=== PATIENT | male | born 1960 | race Two or more races ===

== ENCOUNTER 2021-07-03 00:21 | Inpatient (IN) | payer MEDICAID ==
[~2021-07-03] VITALS: Ht 175.3 cm; Wt 98.0 kg
[~2021-07-03 00:21] MED LIST: HYDR-4833 PO; NAPR500T31 PO
[2021-07-03 01:53] LABS: Basophils # (auto) 0.1 10 ^3/uL (0-0.2); Basophils % (auto) 0.8 % (0.0-2.0); Eosinophils # (auto) 0.2 10 ^3/uL (0-0.8); Eosinophils % (auto) 2.1 % (0.0-7.0); Hemoglobin 15.3 g/dL (13.5-17.5); Lymphocytes # (auto) 1.3 10 ^3/uL (0.4-5.4); Lymphocytes % (auto) 14.4 % (10.0-50.0); Mean Corpuscular Hemoglobin 31.2 pg (28.0-32.0); Mean Corpuscular Volume 91.8 fL (80.0-100.0); Monocytes # (auto) 0.7 10 ^3/uL (0-1.3); Monocytes % (auto) 7.8 % (0.0-12.0); Neutrophils # (auto) 6.5 10 ^3/uL (1.6-8.6); Neutrophils % (auto) 74.9 % (37.0-80.0); Nucleated Red Blood Cells % 0.1 %; Red Cell Distribution Width 14.1 % (11.8-14.3); White Blood Cell 8.7 10^3/uL (4.4-10.8)
[2021-07-03 02:16] LABS: INR 1.05 (0.9-1.15); Partial Thromboplastin Time 28.3 sec (23.6-33.0)
[2021-07-03 02:20] LABS: Albumin 3.3 g/dL (3.4-5.0); BUN/Creatinine Ratio 20.4; Calcium 8.4 mg/dL (8.5-10.1); Potassium 4.2 mmol/L (3.5-5.1)
[2021-07-03 02:23] LABS: Bilirubin, Total 0.5 mg/dL (0.2-1.0); Total Protein 7.2 g/dL (6.4-8.2)
[2021-07-03] MEDS ORDERED: ASPirin 325 MG TAB PO ONE (03:00)
[2021-07-03] MEDS ORDERED: IOHEXOL 350 MG/ML 100ML IJ ONE (03:26)
[2021-07-03] MEDS ORDERED: HEPARIN SODIUM (PORCINE) 5000 UNITS/ML 1ML VIAL IV ONE (05:00)
[2021-07-03] MEDS ORDERED: FUROSEMIDE 20 MG/2 ML VIAL IV ONE (05:30)
[2021-07-03] MEDS ORDERED: ONDANSETRON HCL 4 MG/2 ML VIAL IV PRN (05:30)
[2021-07-03] MEDS ORDERED: HYDROcodone-ACET 5/325MG TAB PO PRN (05:30)
[2021-07-03] MEDS ORDERED: DOCUSATE SOD 100 MG CAP PO PRN (05:30)
[2021-07-03] MEDS ORDERED: ACETAMINOPHEN 325 MG TAB PO PRN (05:30)
[2021-07-03] MEDS ORDERED: AZITHROMYCIN 500MG/ 250ML 250 ML IV ONE (05:30)
[2021-07-03] MEDS ORDERED: CARVEDILOL 3.125 MG TAB PO ONE (05:45)
[2021-07-03] MEDS ORDERED: MORPHINE SULFATE INJ 2 MG/ml SYRG IV PRN (06:00)
[2021-07-03] MEDS: DexAMETHasone SOD PHOS 4 MG/1ML SDV INJ IV SCH ×3 (06:00→22:17)
[2021-07-03] MEDS: SODIUM CHLOR 0.9% PF (SALINE LOCK) 10ML VIAL/SYR IV SCH ×3 (06:00→22:16)
[2021-07-03] MEDS: HEPARIN SODIUM (PORCINE) 5000 UNITS/ML 1ML VIAL SC SCH ×3 (06:00→22:24)
[2021-07-03] MEDS ORDERED: NITROGLYCERIN 0.4 MG SL TAB SL PRN (06:00)
[2021-07-03] MEDS ORDERED: ALBUTEROL SULF HFA 90MCG INH 200DOSE IN SCH (06:00)
[2021-07-03] MEDS ORDERED: AMIODARONE HCL 200 MG TAB PO ONE (06:15)
[2021-07-03 06:22] LABS: Urine Bacteria NONE SEEN /hpf (None Seen); Urine Blood Negative /uL (Negative); Urine Mucus FEW (None Seen); Urine WBC 4 /hpf (0 - 3)
[2021-07-03 06:59] LABS: Basophils # (auto) 0.1 10 ^3/uL (0-0.2); Basophils % (auto) 0.7 % (0.0-2.0); Eosinophils # (auto) 0.1 10 ^3/uL (0-0.8); Eosinophils % (auto) 1.6 % (0.0-7.0); Hematocrit 43.7 % (41.0-53.0); Hemoglobin 15.1 g/dL (13.5-17.5); Lymphocytes # (auto) 1.7 10 ^3/uL (0.4-5.4); Lymphocytes % (auto) 19.3 % (10.0-50.0); Mean Corpuscular Hemoglobin 31.6 pg (28.0-32.0); Mean Corpuscular Hgb Conc. 34.5 g/dL (32.0-36.0); Mean Corpuscular Volume 91.5 fL (80.0-100.0); Monocytes # (auto) 0.7 10 ^3/uL (0-1.3); Neutrophils % (auto) 70.4 % (37.0-80.0); Nucleated Red Blood Cells % 0.1 %; Red Blood Cells 4.77 10^6/uL (4.5-5.90); Red Cell Distribution Width 14.2 % (11.8-14.3); White Blood Cell 8.6 10^3/uL (4.4-10.8)
[2021-07-03] MEDS ORDERED: ALBUTEROL SULF 2.5 MG/0.5ML(0.5%) NEB SOLN NEB ONE (07:00)
[2021-07-03 07:03] LABS: Urine Specific Gravity > 1.050 (1.001-1.035)
[2021-07-03 07:17] LABS: Albumin 3.4 g/dL (3.4-5.0); BUN/Creatinine Ratio 21.1; Calcium 8.5 mg/dL (8.5-10.1); Potassium 4.2 mmol/L (3.5-5.1)
[2021-07-03 07:20] LABS: Bilirubin, Total 0.6 mg/dL (0.2-1.0); Total Protein 7.2 g/dL (6.4-8.2)
[2021-07-03 09:06] VITALS: BP 116/81
[2021-07-03] MEDS: MULTIPLE VITAMIN TAB PO SCH (09:44)
[2021-07-03] MEDS: ZINC SULFATE 220mg CAP or TAB PO SCH (09:44)
[2021-07-03] MEDS: ASCORBIC ACID 500 MG TAB PO SCH ×2 (09:44→22:17)
[2021-07-03] MEDS: ASPirin 81 mg TAB PO SCH (09:44)
[2021-07-03] MEDS: FUROSEMIDE 20 MG/2 ML VIAL IV SCH (09:45)
[2021-07-03] MEDS ORDERED: CARVEDILOL 3.125 MG TAB PO SCH (10:00)
[2021-07-03] MEDS ORDERED: AMIODARONE HCL 200 MG TAB PO SCH (10:00)
[2021-07-03 10:35] VITALS: BP 120/90
[2021-07-03 13:00] VITALS: BP 121/91
[2021-07-03] MEDS ORDERED: SPIRONOLACTONE 25 MG TAB PO ONE (13:00)
[2021-07-03] MEDS ORDERED: DULoxetine HCL 30 MG CAP PO ONE (13:15)
[2021-07-03] MEDS ORDERED: LOSA-69 PO (13:29)
[2021-07-03] MEDS ORDERED: DULO60CA PO (13:29)
[2021-07-03] MEDS ORDERED: PREG50CA PO (13:29)
[2021-07-03] MEDS ORDERED: PREGABALIN 25 MG CAP PO SCH (14:00)
[2021-07-03] MEDS: LISINOPRIL 10 MG TAB PO SCH (15:22)
[2021-07-03] MEDS ORDERED: traMADol HCL 50 MG TAB PO ONE (16:30)
[2021-07-03 17:00] VITALS: BP 120/90
[2021-07-03 20:00] VITALS: BP 113/89
[2021-07-03 22:00] VITALS: BP 113/89
[2021-07-04] VITALS (7 sets, daily range): BP systolic 99–121; BP diastolic 62–91
[2021-07-04] MEDS: SODIUM CHLOR 0.9% PF (SALINE LOCK) 10ML VIAL/SYR IV SCH ×3 (06:28→22:14)
[2021-07-04] MEDS: DexAMETHasone SOD PHOS 4 MG/1ML SDV INJ IV SCH ×3 (06:28→22:14)
[2021-07-04] MEDS: HEPARIN SODIUM (PORCINE) 5000 UNITS/ML 1ML VIAL SC SCH (06:34)
[2021-07-04 07:27] LABS: Basophils # (auto) 0 10 ^3/uL (0-0.2); Basophils % (auto) 0.1 % (0.0-2.0); Eosinophils # (auto) 0 10 ^3/uL (0-0.8); Hematocrit 44.5 % (41.0-53.0); Hemoglobin 15.4 g/dL (13.5-17.5); Lymphocytes # (auto) 0.8 10 ^3/uL (0.4-5.4); Lymphocytes % (auto) 6.2 % (10.0-50.0); Mean Corpuscular Hemoglobin 31.8 pg (28.0-32.0); Mean Corpuscular Hgb Conc. 34.5 g/dL (32.0-36.0); Mean Corpuscular Volume 92.1 fL (80.0-100.0); Monocytes # (auto) 0.4 10 ^3/uL (0-1.3); Monocytes % (auto) 2.9 % (0.0-12.0); Neutrophils # (auto) 11.8 10 ^3/uL (1.6-8.6); Neutrophils % (auto) 90.8 % (37.0-80.0); Nucleated Red Blood Cells % 0.1 %; Red Blood Cells 4.83 10^6/uL (4.5-5.90)
[2021-07-04 07:48] LABS: Albumin 3.2 g/dL (3.4-5.0); Calcium 8.5 mg/dL (8.5-10.1); Potassium 4.5 mmol/L (3.5-5.1)
[2021-07-04 07:52] LABS: BUN/Creatinine Ratio 27.6; Bilirubin, Total 0.6 mg/dL (0.2-1.0)
[2021-07-04] MEDS: ASPirin 81 mg TAB PO SCH (09:21)
[2021-07-04] MEDS: FUROSEMIDE 20 MG/2 ML VIAL IV SCH (09:21)
[2021-07-04] MEDS: ZINC SULFATE 220mg CAP or TAB PO SCH (09:22)
[2021-07-04] MEDS: ASCORBIC ACID 500 MG TAB PO SCH ×2 (09:22→22:15)
[2021-07-04] MEDS: LISINOPRIL 10 MG TAB PO SCH (09:22)
[2021-07-04] MEDS: DULoxetine HCL 30 MG CAP PO SCH (09:22)
[2021-07-04] MEDS: MULTIPLE VITAMIN TAB PO SCH (09:22)
[2021-07-04] MEDS ORDERED: AZITHROMYCIN 500MG/ 250ML 250 ML IV SCH (10:00)
[2021-07-04] MEDS ORDERED: DOXYCYCLINE 100 MG TAB/CAP PO ONE (12:15)
[2021-07-04 15:04] LABS: Alcohol, Urine < 3.0 mg/dL (0-10); Amphetamine Screen, Urine NEGATIVE (NEGATIVE); Barbiturate Scree,Urine NEGATIVE (NEGATIVE); Benzodiazephine Screen, Urine NEGATIVE (NEGATIVE); Cocaine Screen, Urine NEGATIVE (NEGATIVE); Opiate Scree,Urine NEGATIVE (NEGATIVE); Phencyclidine Screen, Urine NEGATIVE (NEGATIVE)
[2021-07-04 15:11] LABS: Cannabinoid Screen, Urine POSITIVE (NEGATIVE)
[2021-07-04] MEDS ORDERED: RIVAROXABAN 20 MG TAB PO SCH (18:00)
[2021-07-04] MEDS ORDERED: GABAPENTIN 100 MG CAP PO SCH (20:00)
[2021-07-04] MEDS: DOXYCYCLINE 100 MG TAB/CAP PO SCH (22:15)
[2021-07-05 05:00] VITALS: BP 104/65
[2021-07-05] MEDS: SODIUM CHLOR 0.9% PF (SALINE LOCK) 10ML VIAL/SYR IV SCH ×2 (06:07→14:21)
[2021-07-05] MEDS: DexAMETHasone SOD PHOS 4 MG/1ML SDV INJ IV SCH (06:07)
[2021-07-05 08:00] VITALS: BP 99/74
[2021-07-05 09:00] VITALS: BP 110/83
[2021-07-05] MEDS: ASPirin 81 mg TAB PO SCH (09:50)
[2021-07-05] MEDS: FUROSEMIDE 20 MG/2 ML VIAL IV SCH (09:50)
[2021-07-05] MEDS: ZINC SULFATE 220mg CAP or TAB PO SCH (09:50)
[2021-07-05] MEDS: DOXYCYCLINE 100 MG TAB/CAP PO SCH (09:51)
[2021-07-05] MEDS: LISINOPRIL 10 MG TAB PO SCH (09:51)
[2021-07-05] MEDS: DULoxetine HCL 30 MG CAP PO SCH (09:51)
[2021-07-05] MEDS: MULTIPLE VITAMIN TAB PO SCH (09:51)
[2021-07-05] MEDS ORDERED: AMIO200T43 PO (10:51)
[2021-07-05] MEDS ORDERED: APIX5TAB PO (10:51)
[2021-07-05] MEDS ORDERED: FURO1TAB33 GT (10:51)
[2021-07-05 11:55] VITALS: BP 110/83
[2021-07-05 13:00] VITALS: BP 112/78
[2021-07-05 13:21] LABS: Hepatitis B Surface Antibody Positive (Negative)
[2021-07-05 13:52] LABS: Hepatitis A Total Antibody Positive (Negative)
[2021-07-05 14:54] LABS: Hepatitis C Antibody Reactive (Negative)
== END 2021-07-05 14:30 | disposition home or self-care (01) | DRG 205 ==
LOC: EDBD 00:21 → ER 00:21 → TELE 05:49 → TELE-EAST 10:20
PROVIDERS: ADMIT Nurse Practitioner Family; ATTEND Internal Medicine
DX: I42.7 Cardiomyopathy due to drug and external agent (principal); J96.01 Acute respiratory failure with hypoxia; I50.23 Acute on chronic systolic (congestive) heart failure; I21.A1 Myocardial infarction type 2; D68.69 Other thrombophilia; I48.0 Paroxysmal atrial fibrillation; G62.9 Polyneuropathy, unspecified; I11.0 Hypertensive heart disease with heart failure; I42.0 Dilated cardiomyopathy; D72.829 Elevated white blood cell count, unspecified; J43.9 Emphysema, unspecified; E66.9 Obesity, unspecified; I44.7 Left bundle-branch block, unspecified; K76.0 Fatty (change of) liver, not elsewhere classified; Z68.31 Body mass index [BMI] 31.0-31.9, adult; R74.8 Abnormal levels of other serum enzymes; F17.210 Nicotine dependence, cigarettes, uncomplicated; I34.0 Nonrheumatic mitral (valve) insufficiency; Z20.822 Contact with and (suspected) exposure to COVID-19; Z79.899 Other long term (current) drug therapy; Z80.1 Family history of malignant neoplasm of trachea, bronchus and lung; Z80.3 Family history of malignant neoplasm of breast; Z80.42 Family history of malignant neoplasm of prostate; Z80.8 Family history of malignant neoplasm of other organs or systems; Z81.8 Family history of other mental and behavioral disorders; Z82.0 Family history of epilepsy and other diseases of the nervous system; Z82.3 Family history of stroke; Z82.49 Family history of ischemic heart disease and other diseases of the circulatory system; Z82.5 Family history of asthma and other chronic lower respiratory diseases; Z82.62 Family history of osteoporosis; Z83.3 Family history of diabetes mellitus; Z91.19 Patient's noncompliance with other medical treatment and regimen
CPT/HCPCS: 36415; 71045; 71275; 76705; 80053; 80307; 81001; 82728; 83735; 83880; 84484; 85025; 85379; 85610; 85730; 86038; 86704; 86706; 86708; 86803; 87340; 93005; 93306; 93970; 96365; 96366; 99291; G0378; J1100

== ENCOUNTER 2022-05-30 08:03 | Day surgery (SDC) | payer OTHER ==
[~2022-05-30] VITALS: Ht 175.3 cm; Wt 84.8 kg
[~2022-05-30 08:03] MED LIST changes: +APIX5TAB PO; +CAR3125T OR; +FINE20TA PO; +HYDR-4798 PO; -HYDR-4833 PO; -NAPR500T31 PO; +VERI2.5T PO
[2022-05-30] MEDS ORDERED: LIDOCAINE 2%HCL (LOCAL ANESTH.) INJ 10ml MDV ONE (09:37)
[2022-05-30] MEDS ORDERED: HEPARIN SODIUM (PORCINE) 5000 UNITS/ML 1ML VIAL ONE (09:40)
[2022-05-30] MEDS ORDERED: ANGIOMAX 250 MG VIAL IV ONE (09:40)
[2022-05-30] MEDS ORDERED: VERAPAMIL 2.5MG/ML INJ 2ML VIAL IV ONE (09:41)
[2022-05-30] MEDS ORDERED: fentaNYL CITRATE 100 MCG/2 ML VL ONE (09:41)
[2022-05-30] MEDS ORDERED: MIDAZOLAM HCL 2MG/2ML 2ml VIAL (1mg/ml) ONE (09:41)
[2022-05-30] MEDS ORDERED: SODIUM CHL 0.9% 0 ML ONE (09:41)
== END 2022-05-30 12:38 | disposition home or self-care (01) ==
LOC: CATH 08:03
PROVIDERS: ATTEND Internal Medicine
DX: I42.8 Other cardiomyopathies (principal); I48.91 Unspecified atrial fibrillation; I50.9 Heart failure, unspecified; I45.4 Nonspecific intraventricular block; Z20.822 Contact with and (suspected) exposure to COVID-19
CPT/HCPCS: 93458; C1769; C1894; J1644; J2001; J2250; J3010; J7030; U0003

== ENCOUNTER 2025-02-16 03:22 | Inpatient (IN) | payer MEDICAID, OTHER ==
[~2025-02-16] VITALS: Ht 172.7 cm; Wt 87.0 kg
[~2025-02-16 03:22] MED LIST changes: +BACL10TA PO; -CAR3125T OR; +CARV-214 PO; +PREG100C66 PO; +VERI10TA PO
--- NOTE | 2025-02-16 03:47 | ED.PDOC ---
HPI Comments 64-year-old male who came to ER via EMS for shortness of breath. He does have history of hypertension, AFib, mi, CHF. Last night he was experiencing palpitations, shortness of breath, and he had a near syncopal attack. Patient went to bed, only to wake up 1 hour ago, due to sudden-onset shortness of breath. Paramedics were called the patient was given nitroglycerin which improved the patient's status Chief Complaint: Shortness of Breath Time Seen by MD: 03:47 Primary Care Provider: TULIO Reviewed Notes: Trekking Guide Notes Allergies: Coded Allergies: NO KNOWN ALLERGIES (Unverified , 08/13/13) Home Meds Active Scripts Apixaban Base (ELIQUIS) 5 Mg Tab, 5 MG PO BID for 30 Days, #60 TAB 3 Refills Prov:MANUEL SOUZA MD 07/05/21 Reported Medications Vericiguat (Verquvo) 2.5 Mg Tab, 2.5 MG PO DAILY for HF, TAB 05/25/22 Finerenone (Kerendia) 20 Mg Tab, 20 MG PO DAILY for CHRONIC KIDNEY DISEASE, TAB 05/25/22 Hydrocodone-Acetaminophen (Hydrocodone Bitartrate/AC 10-325 mg) 1 Tab Tab, 1 TAB PO QIDPRN for SEVERE PAIN/ SCALE 7-10, TAB 05/25/22 Carvedilol (COREG) 3.125 Mg Tab, 3.125 MG OR BID for HTN, TAB 05/25/22 Information Source: Patient, Emergency Med Personnel Mode of Arrival: EMS Past Medical History PAST MEDICAL HISTORY: AFIB, CHF, HTN, PA Surgical History: Denies all surgeries Family History Family History: No family hx of Cancer, No family hx of DM, No family hx of HTN Social History Smoker: Cigarettes, Less Than 1 Pack/Day Alcohol: Occasionally Drugs: Marijuana Lives In: Home Constitutional: denies: chills, diaphoresis, fatigue, fever, malaise, sweats, weakness, others EENTM: denies: blurred vision, double vision, ear bleeding, ear discharge, ear drainage, ear pain, ear ringing, eye pain, eye redness, hearing loss, mouth pain, mouth swelling, nasal discharge, nose bleeding, nose congestion, nose pain, photophobia, tearing, throat pain, throat swelling, voice changes, others Respiratory: reports: shortness of breath; denies: cough, hemoptysis, orth opnea, SOB at rest, SOB with excertion, stridor, wheezing, others Cardiovascular: reports: chest pain, dizzy spells, palpitations, syncope; denies: diaphoresis, Dyspnea on exertion, edema, irregular heart beat, left arm pain, lightheadedness, PND, others Gastrointestinal: denies: abdomen distended, abdominal pain, blood streaked bowels, constipated, diarrhea, dysphagia, difficulty swallowing, hematemesis, melena, nausea, poor appetite, poor fluid intake, rectal bleeding, rectal pain, vomiting, others Genitourinary: denies: burning, dysuria, flank pain, frequency, hematuria, incontinence, penile discharge, penile sore, pain, testicle pain, testicle swelling, urgency, others Neurological: denies: dizziness, fainting, headache, left sided numbness, left sided weakness, numbness, paresthesia, pre-existing deficit, right sided numbness, right sided weakness, seizure, speech problems, tingling, tremors, weakness, others Musculoskeletal: denies: back pain, gout, joint pain, joint swelling, muscle pain, muscle stiffness, neck pain, others Integumetry: denies: bruises, change in color, change in hair/nails, dryness, laceration, lesions, lumps, rash, wounds, others Allergic/Immunocompromised: denies: Difficulty Healing, Frequent Infections, Hives, Itching, others Hematologic/Lymphatic: denies: anemia, blood clots, easy bleeding, easy bruising, swollen glands, others Endocrine: denies: excessive hunger, excessive sweating, excessive thirst, excessive urination, flushing, intolerance to cold, intolerance to heat, unexplained weight gain, unexplained weight loss, others Psychiatric: denies: anxiety, bipolar disorder, depression, hopeless, panic disorder, schizophrenia, sleepless, suicidal, others Physical Exam General Appearance: No Apparent Distress, Normal HEENT: Normal ENT Inspection, Pharynx Normal, TMs Normal Neck: Full Range of Motion, Non-Tender, Normal, Normal Inspection Respiratory: Chest Non-Tender, Lungs Clear, No Accessory Muscle Use, No Respiratory Distress, Normal Breath Sounds Cardiovascular: No Edema, No JVD, No Murmur, No Gallop, Normal Peripheral Pulses, Regular Rate/Rhythm Breast Exam: Deferred Gastrointestinal: No Organomegaly, Non Tender, No Pulsatile Mass, Normal Bowel Sounds, Soft Genitalia: Deferred Pelvic: Deferred Rectal: Deferred Extremities: No calf tenderness, Normal capillary refill, Normal inspection, Normal range of motion, Non-tender, No pedal edema Musculoskeletal : Apperance: Normal Neurologic: Alert, hvac engineer II-XII nml as Tested, No Motor Deficits, Normal Affect, Normal Mood, No Sensory Deficits Cerebellar Function: Normal Reflexes: Normal Skin: Dry, Normal Color, Warm Lymphatic: No Adenopathy EKG EKG : Pulse Rate (adult): 75 Cardiac Rhythm: NSR Hypertrophy: LAE Was a procedure done? Was a procedure done?: No CP Differential Dx Differential Diagnosis: A-fib, Angina, Anxiety / Panic Attack, Electrolyte Disorder, Hyperventilation Differential Diagnosis: Angina, Chest Wall Pain, Costochondritis, Esophageal reflux/spasm, Gastritis, Myocardial Infarction X-Ray, Labs, Meds, VS Vital Signs Date Time Temp Pulse Resp B/P (MAP) Pulse Ox O2 Delivery O2 Flow Rate FiO2 02/16/25 03:47 75 02/16/25 03:30 75 02/16/25 03:22 98.7 77 20 136/90 94 98.7 Lab Test 02/16/25 04:18 02/16/25 03:54 Range/Units Troponin I High Sensitivity 145 *H 147 *H </=54 ng/L White Blood Count 8.3 4.4-10.8 10^3/uL Red Blood Count 5.79 4.5-5.90 10^6/uL Hemoglobin 18.4 H 13.5-17.5 g/dL Hematocrit 53.3 H 41.0-53.0 % Mean Corpuscular Volume 92.2 80.0-100.0 fL Mean Corpuscular Hemoglobin 31.7 28.0-32.0 pg Mean Corpuscular Hemoglobin Concent 34.4 32.0-36.0 g/dL Red Cell Distribution Width 15.1 H 11.8-14.3 % Platelet Count 308 140-450 10^3/uL Mean Platelet Volume 7.1 6.9-10.8 fL Neutrophils (%) (Auto) 71.3 37.0-80.0 % Lymphocytes (%) (Auto) 15.4 10.0-50.0 % Monocytes (%) (Auto) 8.5 0.0-12.0 % Eosinophils (%) (Auto) 4.0 0.0-7.0 % Basophils (%) (Auto) 0.8 0.0-2.0 % Neutrophils # (Auto) 5.9 1.6-8.6 10 ^3/uL Lymphocytes # (Auto) 1.3 0.4-5.4 10 ^3/uL Monocytes # (Auto) 0.7 0-1.3 10 ^3/uL Eosinophils # (Auto) 0.3 0-0.8 10 ^3/uL Basophils # (Auto) 0.1 0-0.2 10 ^3/uL Nucleated Red Blood Cells 0.0 % Prothrombin Time 11.3 9.3-11.8 sec Prothrombin Time INR 1.07 0.9-1.15 Activated Partial Thromboplast Time 35.4 H 24.5-34.5 SEC Sodium Level 140 136-145 mmol/L Potassium Level 4.1 3.5-5.1 mmol/L Chloride Level 108 H 98-107 mmol/L Carbon Dioxide Level 22 20-31 mmol/L Anion Gap 10 5-15 Blood Urea Nitrogen 13 9-23 mg/dL Creatinine 1.31 H 0.700-1.30 mg/dL Glomerular Filtration Rate Calc 62 >90 mL/min BUN/Creatinine Ratio 9.9 L 10.0-20.0 Serum Glucose 127 H 74-106 mg/dL Calcium Level 9.0 8.7-10.4 mg/dL Magnesium Level 2.1 1.6-2.6 mg/dL Total Bilirubin 0.6 0.2-1.0 mg/dL Aspartate Amino Transferase (AST) 72 H 13-40 U/L Alanine Aminotransferase (ALT) 78 H 7-40 U/L Alkaline Phosphatase 107 46-116 U/L B-Type Natriuretic Peptide 431.41 0-100 pg/mL Total Protein 7.0 5.7-8.2 g/dL Albumin 4.1 3.2-4.8 g/dL Current Medications Medications (Trade) Dose Ordered Sig/Jazzy Route Start Time Stop Time Status Last Admin Aspirin 162 mg ONCE ONCE PO 02/16/25 03:45 02/16/25 03:46 DC 02/16/25 04:46 Time of 1ST Reevaluation: 03:43 Reevaluation 1ST: Unchanged Patient Education/Counseling: Diagnosis, Treatment Family Education/Counseling: No Family Present SEPSIS Sepsis Screen Date sepsis recognized/suspect: Feb 16, 2025 Time Sepsis recognized/suspect: 321 Recent Procedure: No On Antibiotic Therapy: No Respiratory Rate >20: No Heart Rate >90: No Temp<36 C (96.8 F) or >38.3 C: No SBP <90 or MAP <65 mmHG: No New Acute Mental Status Change: No Is the patient on CPAP, BIPAP,: No Physician Orders Chest Portable (02/16/25 03:36) Heplock Iv (02/16/25 03:36) Edge Glue Machine Tender (02/16/25 03:36) Electrocardigram (02/16/25 03:36) Vital Signs Date Time Temp Pulse Resp B/P (MAP) Pulse Ox O2 Delivery O2 Flow Rate FiO2 02/16/25 03:47 75 02/16/25 03:30 75 02/16/25 03:22 98.7 77 20 136/90 94 98.7 Laboratory Tests Test 02/16/25 03:54 White Blood Count 8.3 10^3/uL (4.4-10.8) Medications Medications Dose Ordered Sig/Jazzy Route Start Time Stop Time Status Last Admin Dose Admin Aspirin 162 mg ONCE ONCE PO 02/16/25 03:45 02/16/25 03:46 DC 02/16/25 04:46 Departure 1 Departure Time of Disposition: 07:00 Impression: Primary Impression: ACS (acute coronary syndrome) Additional Impression: CHF (congestive heart failure) Disposition: ADMITTED INPATIENT Condition: Guarded Discharged With: Self Comments 64-year-old male with chest tightness and shortness of breath. It does look like he might have some CHF on his chest x-ray. Troponin is elevated. Patient was given aspirin and Lasix. Patient will need to be admitted for supportive care and further workup. Critical Care Note Critical Care Time?: Yes (35 min-critical care time only) Critical care comment: Total critical care time: Approximately 36 minutes Due to a high probability of clinically significant, life threatening deterioration, the patient required my highest level of preparedness to intervene emergently and I personally spent this critical care time directly and personally managing the patient. This critical care time included obtaining a history; examining the patient; pulse oximetry; ordering and review of studies; arranging urgent treatment with development of a management plan; evaluation of patient's response to treatment; frequent reassessment; and, discussions with other providers. This critical care time was performed to assess and manage the high probability of imminent, life-threatening deterioration that could result in multi-organ failure. It was exclusive of separately billable procedures and treating other patients. Stability Stability form required: No Heart Score Heart Score: Heart Score Response (Comments) Value History Moderate Suspicious 1 EKG Repolarization Disturb 1 Age 45-64 1 Risk Factors >3 or Hx ASHD 2 Troponin Normal limit 0 Total 5 I personally scribed for ORALIA LERNER MD ([email or web address]) on 02/16/25 at 03:47. Electronically submitted by David Jimenez ([email or web address]). ORALIA LERNER MD Feb 16, 2025 03:47
[2025-02-16 04:09] LABS: Nucleated Red Blood Cells % 0.0 %
[2025-02-16 04:10] LABS: Hematocrit 53.3 % (41.0-53.0); Hemoglobin 18.4 g/dL (13.5-17.5); Mean Corpuscular Hemoglobin 31.7 pg (28.0-32.0); Mean Corpuscular Volume 92.2 fL (80.0-100.0)
[2025-02-16 04:22] LABS: Albumin 4.1 g/dL (3.2-4.8); Alkaline Phosphatase 107 U/L (46-116); Anion Gap 10 (5-15); BUN/Creatinine Ratio 9.9 (10.0-20.0); Blood Urea Nitrogen 13 mg/dL (9-23); Calcium 9.0 mg/dL (8.7-10.4); Carbon Dioxide 22 mmol/L (20-31); INR 1.07 (0.9-1.15); Magnesium 2.1 mg/dL (1.6-2.6); Partial Thromboplastin Time 35.4 SEC (24.5-34.5); Potassium 4.1 mmol/L (3.5-5.1); Prothrombin Time 11.3 sec (9.3-11.8); Sodium 140 mmol/L (136-145); Total Protein 7.0 g/dL (5.7-8.2)
[2025-02-16 04:23] LABS: Bilirubin, Total 0.6 mg/dL (0.2-1.0)
[2025-02-16 04:25] LABS: Alanine Aminotransferase 78 U/L (7-40); Chloride 108 mmol/L (98-107); Glucose 127 mg/dL (74-106)
--- NOTE | 2025-02-16 06:28 | DVH ---
CHEST RADIOGRAPH INDICATION: SOB TECHNIQUE: Single frontal view of the chest was obtained COMPARISON: CHEST PORTABLE on DOS: 07/03/21, CXRP on DOS: 07/03/21 FINDINGS: Lines and Tubes: None Lungs: No focal consolidation. Diffuse reticular opacities may reflect atypical pneumonia versus mild pulmonary edema. Right base subsegmental atelectasis. Pleura: No effusion. No pneumothorax. Cardiomediastinal contours: Mild cardiomegaly. Bones: No acute osseous abnormality. IMPRESSION: 1. Diffuse reticular opacities may reflect atypical pneumonia versus mild pulmonary edema. 2. Right base subsegmental atelectasis. 3. Mild cardiomegaly.
[2025-02-16] MEDS: FUROSEMIDE 40 MG/4 ML VIAL IV ONE (06:29)
--- NOTE | 2025-02-16 09:55 | DVHHP2 ---
History of Present Illness Reason for Visit: sob History of Present Illness 64-year-old male with significant past medical history of atrial fibrillation on Eliquis (followed by Skiing Instructor Dr. Adams), heart failure with reduced ejection fraction, drug-induced dilated cardiomyopathy, hypertension, peripheral neuropathy, and right lower extremity amputation/right foot surgery, presents with acute shortness of breath and generalized weakness. The patient reports that last night, while walking up his property, he developed difficulty catching his breath and felt that his legs became weak, to the point where he was briefly unable to stand. He later awoke around 2:00 AM with worsening shortness of breath, prompting him to come to the ED for evaluation. The patient states that he is prescribed Lasix PRN but was instructed previously to only take it as needed; he reports that the last time he took Lasix was approximately two months ago. He denies chest pain, headache, dizziness, or syncope. He does note that after receiving IV Lasix in the ED, his shortness of breath significantly impro carlee. In the ED, labs showed hemoglobin 18.4 / hematocrit 53.3, chloride 108, creatinine 1.31, glucose 127, AST 72, ALT 78, troponin x2 negative, and BNP 431.4. Chest x-ray demonstrated cardiomegaly with right basilar atelectasis. Review of records shows the last echocardiogram from June 2021, at which time the EF was approximately 10%. The patient is currently awaiting defibrillator (ICD) placement per pt statement. Given symptoms consistent with acute decompensated heart failure, the patient will be admitted for further cardiac evaluation and management. Past Medical History See HPI above Past Surgical History See HPI above Family History Reviewed, non-contributory to the management of this case. Past Social History The patient lives at home, denies smoking, alcohol or illicit drugs abuse. Review of Systems Constitutional: No: Fever, Chills, Sweats, Weakness, Malaise, Other Eyes: No: Pain, Vision change, Conjunctivae inflammation, Eyelid inflammation, Other, Redness ENT: No: Ear pain, Ear discharge, Nose pain, Nose discharge, Nose congestion, Mouth pain, Mouth swelling, Throat pain, Throat swelling, Other Respiratory: Shortness of breath, SOB with excertion; No: Cough, Dry, Wheezing, Hemoptysis, Pleuritic Pain, Sputum, Wheezing, Other Cardiovascular: No: Chest Pain, Palpitations, Orthopnea, Paroxysmal Noc. Dyspnea, Edema, Lt Headedness, Other Gastrointestinal: No: Nausea, Vomiting, Abdominal Pain, Diarrhea, Constipation, Melena, Hematochezia, Other Genitourinary: No Dysuria, No Frequency, No Incontinence, No Hematuria, No Retention, No Other Musculoskeletal: No: other, neck pain, shoulder pain, arm pain, back pain, hand pain, leg pain, foot pain Skin: No: Rash, Lesions, Jaundice, Bruising, Other Neurological: No: Weakness, Numbness, Incoordination, Change in speech, Confusion, Seizures, Other Allergies: Coded Allergies: NO KNOWN ALLERGIES (Unverified , 08/13/13) Exam Vital Signs Vital Signs Date Time Temp Pulse Resp B/P (MAP) Pulse Ox O2 Delivery O2 Flow Rate FiO2 02/16/25 09:18 99.2 77 17 130/89 (103) 94 99.2 02/16/25 09:18 Room Air General Appearance: Alert, Oriented X3, Cooperative, No acute distress HEENT: Atraumatic, PERRLA, EOMI, Mucous membr. moist/pink Respiratory: Other (Coarse rales throughout) Cardiovascular: Regular rate, Normal S1, Normal S2, No murmurs Abdominal: Normal bowel sounds, Soft, No tenderness, No hepatospenomegaly, No masses Extremities: No clubbing, No cyanosis, No edema, Normal pulses, No tenderness/swelling Skin: No rashes, No breakdown, No significant lesion Neuro: Normal gait, Normal speech, Strength at 5/5 X4 ext, Normal tone, Sensation intact, Cranial nerves 3-12 NL Psych/Mental Status: Mental status NL, Mood NL Labs/Xrays Chest x-ray shows mild cardiomegaly and right basilar atelectasis I reviewed labs, imaging CT scan abdomen pelvis, EKG and all diagnostic studies on this patient from ED records and the medical chart Labs Test 02/16/25 04:18 02/16/25 03:54 Range/Units Troponin I High Sensitivity 145 *H </=54 ng/L White Blood Count 8.3 4.4-10.8 10^3/uL Red Blood Count 5.79 4.5-5.90 10^6/uL Hemoglobin 18.4 H 13.5-17.5 g/dL Hematocrit 53.3 H 41.0-53.0 % Mean Corpuscular Volume 92.2 80.0-100.0 fL Mean Corpuscular Hemoglobin 31.7 28.0-32.0 pg Mean Corpuscular Hemoglobin Concent 34.4 32.0-36.0 g/dL Red Cell Distribution Width 15.1 H 11.8-14.3 % Platelet Count 308 140-450 10^3/uL Mean Platelet Volume 7.1 6.9-10.8 fL Neutrophils (%) (Auto) 71.3 37.0-80.0 % Lymphocytes (%) (Auto) 15.4 10.0-50.0 % Monocytes (%) (Auto) 8.5 0.0-12.0 % Eosinophils (%) (Auto) 4.0 0.0-7.0 % Basophils (%) (Auto) 0.8 0.0-2.0 % Neutrophils # (Auto) 5.9 1.6-8.6 10 ^3/uL Lymphocytes # (Auto) 1.3 0.4-5.4 10 ^3/uL Monocytes # (Auto) 0.7 0-1.3 10 ^3/uL Eosinophils # (Auto) 0.3 0-0.8 10 ^3/uL Basophils # (Auto) 0.1 0-0.2 10 ^3/uL Nucleated Red Blood Cells 0.0 % Prothrombin Time 11.3 9.3-11.8 sec Prothrombin Time INR 1.07 0.9-1.15 Activated Partial Thromboplast Time 35.4 H 24.5-34.5 SEC Sodium Level 140 136-145 mmol/L Potassium Level 4.1 3.5-5.1 mmol/L Chloride Level 108 H 98-107 mmol/L Carbon Dioxide Level 22 20-31 mmol/L Anion Gap 10 5-15 Blood Urea Nitrogen 13 9-23 mg/dL Creatinine 1.31 H 0.700-1.30 mg/dL Glomerular Filtration Rate Calc 62 >90 mL/min BUN/Creatinine Ratio 9.9 L 10.0-20.0 Serum Glucose 127 H 74-106 mg/dL Calcium Level 9.0 8.7-10.4 mg/dL Magnesium Level 2.1 1.6-2.6 mg/dL Total Bilirubin 0.6 0.2-1.0 mg/dL Aspartate Amino Transferase (AST) 72 H 13-40 U/L Alanine Aminotransferase (ALT) 78 H 7-40 U/L Alkaline Phosphatase 107 46-116 U/L B-Type Natriuretic Peptide 431.41 0-100 pg/mL Total Protein 7.0 5.7-8.2 g/dL Albumin 4.1 3.2-4.8 g/dL SEPSIS Sepsis Screen Date sepsis recognized/suspect: Feb 16, 2025 Time Sepsis recognized/suspect: 321 Recent Procedure: No On Antibiotic Therapy: No Respiratory Rate >20: No Heart Rate >90: No Temp<36 C (96.8 F) or >38.3 C: No SBP <90 or MAP <65 mmHG: No New Acute Mental Status Change: No Is the patient on CPAP, BIPAP,: No Physician Orders Chest Portable (02/16/25 03:36) Heplock Iv (02/16/25 03:36) Tugboat Mate (02/16/25 03:36) Electrocardigram (02/16/25 03:36) Cardiac Diet-2gna,Lofat,Lochol (02/16/25 Breakfast) Vital Signs Date Time Temp Pulse Resp B/P (MAP) Pulse Ox O2 Delivery O2 Flow Rate FiO2 02/16/25 09:18 99.2 77 17 130/89 (103) 94 99.2 02/16/25 09:18 77 17 94 Room Air 02/16/25 06:29 139/97 02/16/25 06:29 97.7 77 16 139/97 (111) 95 97.7 02/16/25 03:47 75 02/16/25 03:30 75 02/16/25 03:22 98.7 77 20 136/90 94 98.7 Laboratory Tests Test 02/16/25 03:54 White Blood Count 8.3 10^3/uL (4.4-10.8) Medications Medications Dose Ordered Sig/Jazzy Route Start Time Stop Time Status Last Admin Dose Admin Aspirin 162 mg ONCE ONCE PO 02/16/25 03:45 02/16/25 03:46 DC 02/16/25 04:46 162 MG Furosemide 40 mg ONCE ONCE IV 02/16/25 06:15 02/16/25 06:16 DC 02/16/25 06:29 40 MG Assessment/Plan Assessment/Plan 64-year-old male with known severe cardiomyopathy and atrial fibrillation, presenting with acute decompensated heart failure causing shortness of breath an d weakness, requiring IV diuresis and inpatient cardiac evaluation. Acute decompensated heart failure (HFrEF) Admit to telemetry Continue IV diuresis with Lasix, transition to oral as tolerated Strict I/O and daily weights Monitor renal function and electrolytes BNP elevated at 431.4 ordered echo fu results cont home medication with eliquis 02 to keep sats >92% acute jose francisco likely from congestion from hf ordered lasix monitor for worsening crea strict i/o's ordered cards consult Dr. Adams acute Mild transaminitis Likely congestive hepatopathy AST 72 / ALT 78 Trend LFTs Severe dilated cardiomyopathy (drug-induced) Known EF 10% (June 2021) Repeat echocardiogram ordered Optimize guideline-directed medical therapy as tolerated chronic problems Atrial fibrillation on anticoagulation no rvr Continue Eliquis/Awaiting ICD placement Hypertension Monitor BP closely Resume home antihypertensives Peripheral neuropathy History of right lower extremity amputation / foot surgery Heart failure with reduced EF Dilated cardiomyopathy Chronic anticoagulation use FEN / PPx Fluids: Fluid restriction per CHF protocol Electrolytes: Monitor BMP daily, replete as needed Nutrition: Cardiac diet, low sodium DVT Prophylaxis: Therapeutic anticoagulation with Eliquis GI Prophylaxis: PPI if indicated Disposition Admit to telemetry for management of acute heart failure exacerbation. Continue diuresis, Plan discussed with: Patient Date of Service: Feb 16, 2025 Billing Provider: KOKO TRAN DNP Common Visit Codes: [id number] INP/OBS CARE (HIGH) KOKO TRAN DNP Feb 16, 2025 09:55
[2025-02-16] MEDS ORDERED: NITROGLYCERIN 0.4 MG SL TAB SL PRN ×2 (10:00→21:15)
[2025-02-16] MEDS: HYDROcodone-ACET 10/325MG TAB PO SCH ×2 (12:00→22:06)
[2025-02-16] MEDS: APIXABAN 5 MG TAB PO SCH ×2 (12:08→22:05)
[2025-02-16] MEDS: CARVEDILOL 3.125 MG TAB PO SCH ×2 (12:09→22:05)
[2025-02-16 12:47] LABS: Urine Protein, UAD Negative (Negative)
[2025-02-16 13:19] VITALS: PULSE 87; RESP 13; O2SAT 95
[2025-02-16] MEDS ORDERED: DAPA1TAB4 PO (15:06)
[2025-02-16] MEDS ORDERED: AMIO200T33 PO (15:07)
[2025-02-16] MEDS ORDERED: DULO60CA41 PO (15:07)
--- NOTE | 2025-02-16 17:59 | DVHSR ---
APPROVED REPORT EXAM: Two-dimensional and M-mode echocardiogram with Doppler and color Doppler. Blood Pressure: 130/89 mmHg INDICATION Eval Cardiac Function and EF RISK FACTORS Height: 5' 9", Weight: 178 DIMENSIONS LVDd 7.7 (3.8-5.7cm) LA (2D) 4.2 (1.9-4.0cm) Aortic Root 3.8 (2.0-3.7cm) LVDs 7.4 (2.5-4.0cm) LA (MM) (1.9-4.0cm) Aortic Cusp Exc 2.0 (1.5-2.0cm) EF (%) 10.0 (55-70%) Rt. Atrium 3.9 (1.9-4.0cm) Asc. Aorta cm IVSd 1.0 (0.7-1.1cm) RV (D) (1.8-2.4cm) PWd 1.1 (0.7-1.1cm) Mitral Valve Mitral Mitral Stenosis E wave 0.50m/s MV Mean GR. mmHg A wave 1.10m/s MV Peak GR. mmHg E/A ratio 0.5 2D MVA cm2 Aortic Valve Aortic Valve Aortic Stenosis V1 0.50m/s AO Mean GR. 3mmHg V2 1.20m/s AO Peak GR. 6mmHg LVOT Diameter 2.6 (1.8-2.4cm) Doppler GORGE 2.21cm2 Conclusion MAJOR LV SYSTOLIC DYSFUNCTION LV EF IS ONLY 10% MODERATE DEGREE MR NORMAL VALVES NO EFFUSION
[2025-02-16 20:00] VITALS: PULSE 71; PULSE 79; RESP 18; O2SAT 94
[2025-02-16 21:00] VITALS: BP 137/88; PULSE 71; RESP 17; TEMP 98.2; O2SAT 94
[2025-02-16] MEDS ORDERED: ATORVASTATIN 20 MG TAB PO SCH (22:00)
[2025-02-16] MEDS ORDERED: FUROSEMIDE 40 MG/4 ML VIAL IV SCH (22:00)
[2025-02-16] MEDS: ATORVASTATIN 20 MG TAB PO SCH (22:04)
[2025-02-16] MEDS: FUROSEMIDE 40 MG/4 ML VIAL IV SCH (22:04)
[2025-02-17] VITALS (9 sets, daily range): BP systolic 107–133; BP diastolic 72–98; PULSE 57–81; RESP 16–18; TEMP 97.7–98.9; O2SAT 94–98
[2025-02-17 06:47] LABS: Hematocrit 55.8 % (41.0-53.0); Hemoglobin 18.9 g/dL (13.5-17.5); Mean Corpuscular Hemoglobin 31.2 pg (28.0-32.0); Mean Corpuscular Volume 91.9 fL (80.0-100.0); Nucleated Red Blood Cells % 0.1 %
[2025-02-17 07:17] LABS: Alkaline Phosphatase 96 U/L (46-116); Anion Gap 11 (5-15); BUN/Creatinine Ratio 12.1 (10.0-20.0); Blood Urea Nitrogen 19 mg/dL (9-23); Calcium 9.6 mg/dL (8.7-10.4); Carbon Dioxide 27 mmol/L (20-31); Chloride 105 mmol/L (98-107); Potassium 4.1 mmol/L (3.5-5.1); Sodium 143 mmol/L (136-145); Total Protein 7.6 g/dL (5.7-8.2)
[2025-02-17 07:18] LABS: Albumin 4.4 g/dL (3.2-4.8); Bilirubin, Total 0.8 mg/dL (0.2-1.0)
[2025-02-17 07:20] LABS: Alanine Aminotransferase 87 U/L (7-40); Glucose 122 mg/dL (74-106)
--- NOTE | 2025-02-17 10:10 | ECG ---
[facility] Test Date: 2025-02-16 Test Time: 11:49:19 Pat Name: JOSSY HONG Department: Room: 0295T B Gender: M Telephonic Nurse Case Manager: GAMALIEL : 1960 Requested By: ORALIA LERNER Order Number: [id number] Reading MD: Marco Adam Measurements Intervals [place] Rate: 79 P: 63 [place]: 198 QRS: -67 QRSD: 208 T: 83 QT: 483 QTc: 554 Interpretive Statements Sinus rhythm Biatrial enlargement RBBB and LAFB Left ventricular hypertrophy Electronically Signed On 02-20-2025 17:20:09 PST by Marco Adam Please click the below link to view image of tracing.
[2025-02-17] MEDS: HYDROcodone-ACET 10/325MG TAB PO PRN (10:59)
[2025-02-17 11:57] LABS: COVID19 ANTIGEN SOFIA FIA NEGATIVE (NEGATIVE)
--- NOTE | 2025-02-17 16:18 | DVHPNRES ---
Progress Note Date Seen: Feb 17, 2025 Resident Creating Document: JALEESA RASHID RESIDENT Has the PT tested + for MRSA If YES, has PT been informed?: No Medical Necessity Reason Pt with a Central, PICC or Fol: No Subjective Review of Systems Fabian Zarate is a 64-year-old male, with past medical history of atrial fibrillation on Eliquis (followed by Contact Manager Dr. Adams), heart failure with reduced ejection fraction, drug-induced dilated cardiomyopathy, hypertension, peripheral neuropathy, and right lower extremity amputation/right foot surgery, presents with acute shortness of breath and generalized weakness. The patient reports that last night, while walking up his property, he developed difficulty catching his breath and felt that his legs became weak, to the point where he was briefly unable to stand. He later awoke around 2:00 AM with worsening shortness of breath, prompting him to come to the ED for evaluation. The patient states that he is prescribed Lasix PRN but was instructed previously to only take it as needed; he reports that the last time he took Lasix was approximately two months ago. He denies chest pain, headache, dizziness, or syncope. He does note that after receiving IV Lasix in the ED, his shortness of breath significantly improved. In the ED, labs showed hemoglobin 18.4 / hematocrit 53.3, chloride 108, creatinine 1.31, glucose 127, AST 72, ALT 78, troponin x2 negative, and BNP 431.4. Chest x-ray demonstrated cardiomegaly with right basilar atelectasis. Review of records shows the last echocardiogram from June 2021, at which time the EF was approximately 10%. The patient is currently awaiting defibrillator (ICD) placement per pt statement. Given symptoms consistent with acute decompensated heart failure, the patient will be admitted for further cardiac evaluation and management. Past Medical History:See HPI above Past Surgical History:See HPI above Family History: Reviewed, non-contributory to the management of this case. Past Social History: The patient lives at home, denies smoking, alcohol or illicit drugs abuse. Hospital course: On 02/17/25, the patient was examined and evaluated at bedside. The patients vital signs, labs and chart was reviewed. The patient reports improvement on dyspnea. No aFib episode reported on telemetry. The patient troponins values are trending down.Repeated BNP is 234.49. New ECHO showed EF 10%. Cardiology consult was place. Dr. Rey (patient's cardiologyst) has been contacted to report the patient status. We are waiting on his instructions. The patient continues in IV furosemide 40mg bid. We will continue providing follow up of this patient progress. ROS: Constitutional: No: Fever, Chills, Sweats, Weakness, Malaise, Other Eyes: No: Pain, Vision change, Conjunctivae inflammation, Eyelid inflammation, Other, Redness ENT: No: Ear pain, Ear discharge, Nose pain, Nose discharge, Nose congestion, Mouth pain, Mouth swelling, Throat pain, Throat swelling, Other Respiratory: Shortness of breath improving , SOB with excertion improving; No: Cough, Dry, Wheezing, Hemoptysis, Pleuritic Pain, Sputum, Wheezing, Other Cardiovascular: No: Chest Pain, Palpitations, Orthopnea, Paroxysmal Noc. Dyspnea, Edema, Lt Headedness, Other Gastrointestinal: No: Nausea, Vomiting, Abdominal Pain, Diarrhea, Constipation, Melena, Hematochezia, Other Genitourinary: No Dysuria, No Frequency, No Incontinence, No Hematuria, No Retention, No Other Musculoskeletal: No: other, neck pain, shoulder pain, arm pain, back pain, hand pain, leg pain, foot pain Skin: No: Rash, Lesions, Jaundice, Bruising, Other Neurological: No: Weakness, Numbness, Incoordination, Change in speech, Confusion, Seizures, Other Allergies: NO KNOWN ALLERGIES (Unverified , 08/13/13) Objective vital signs Vital Sign Date Time Temp Pulse Resp B/P (MAP) Pulse Ox O2 Delivery O2 Flow Rate FiO2 02/17/25 12:35 98.2 75 17 131/90 (104) 95 98.2 02/17/25 08:27 Room Air* 0 21 Total Intake and Output 02/16/25 02/16/25 02/17/25 15:00 23:00 07:00 Intake Total 1500 ml Balance 1500 ml medications Current Medications Medications Dose Ordered Sig/Jazzy Route Start Time Stop Time Status Last Admin Dose Admin Apixaban 5 mg BID PO 02/16/25 22:00 02/17/25 10:42 5 MG Carvedilol 3.125 mg BID PO 02/16/25 22:00 02/17/25 10:41 3.125 MG Atorvastatin Calcium 20 mg HS PO 02/16/25 22:00 02/16/25 22:04 20 MG Furosemide 40 mg BID IV 02/16/25 22:00 02/17/25 10:43 40 MG Nitroglycerin 0.4 mg Q5MINP PRN SL 02/16/25 21:15 Patient Own Medication 20 mg DAILY PO 02/17/25 10:00 Patient Own Medication 2.5 mg DAILY PO 02/17/25 10:00 Acetaminophen/ Hydrocodone Bitart 1 tab Q6HPRN PRN PO 02/17/25 10:45 02/17/25 10:59 1 TAB Examination General Appearance: Alert, Oriented X3, Cooperative, No acute distress HEENT: Atraumatic, PERRLA, EOMI, Mucous membr. moist/pink Respiratory: mil crackles on bilateral bases. Cardiovascular: Regular rate, Normal S1, Normal S2, No murmurs Abdominal: Normal bowel sounds, Soft, No tenderness, No hepatospenomegaly, No masses Extremities: No clubbing, No cyanosis, No edema, Normal pulses, No tenderness/swelling Skin: No rashes, No breakdown, No significant lesion Neuro: Normal gait, Normal speech, Strength at 5/5 X4 ext, Normal tone, Sensation intact, Cranial nerves 3-12 NL Psych/Mental Status: Mental status NL, Mood NL laboratory and microbiology Laboratory Tests 02/17/25 05:40 Test 02/17/25 05:40 Range/Units Serum Glucose 122 H 74-106 mg/dL Problem List/Assessment/Plan Problem List/Assessment/Plan #Acute on chronic heart failure (HFrEF 10%) exacerbation #Acute Fluid overload #Acute Pulmonary congestion #Severe dilated cardiomyopathy (drug-induced) Optimize guideline-directed medical therapy as tolerated Continue IV diuresis with Lasix, transition to oral as tolerated Strict I/O and daily weights BNP elevated at 431.4, 234.49 ordered echo: EF 10% Furosemide 40mg BID Cardiology consult: Dr. Adams #MICHAEL on CKD Stage 3a Avoid nephrotoxins Monitor Crea and BUN Monitor renal function and electrolytes #Acute Mild transaminitis Likely congestive hepatopathy AST 72 / ALT 78 Trend LFTs #Paroxysmal Atrial fibrillation [id number] score: 2 No in RVR, rate controlled. Eliquis 5mg po bid Carvedilol 3.125mg po bid #History of right lower extremity amputation / foot surgery Fall prevention care. #Obesity BMI 30.7 Counseling about healthy life style. Diet Cardiac diet DVT prophylaxis: patient on eliquis GI prophylaxis Protonix Code status: full code PCP:Dr. Savage Patient's status and plan discussed with the patient >30min. Case discussed with Dr. Wasserman Plan discussed with: Patient, Other (aunt) My Orders My Orders Orders - JALEESA RASHID Procedure Category Date Status Time Drug Screen LAB 02/17/25 Logged 08:00 Hydrocodone-Acet PHA 02/17/25 In Process 10/325mg Tab ([place] 10:45 Visit Coding STANDARD RES Billing Provider: ARENL OCHOA MD Date of Service if different f: Feb 17, 2025 Common Visit Codes: 76297-[id number] INP/OBS CARE(HIGH) JALEESA RASHID RESIDENT Feb 17, 2025 16:18
--- NOTE | 2025-02-17 16:58 | CONS ---
Pharmacy Clinical Information: From Heart Failure Fallout Report on CQM Application, Fabian Humphrey is an 64-year-old male with PMH of HFrEF, afib, drug-induced dilated cardiomyopathy, hypertension, peripheral neuropathy, and right lower extremity amputation/right foot surgery His home medications for CHF include carvedilol, dapagliflozin, finerenone, and vericiguat His inpatient medications for CHF include carvedilol, finerenone (patients own med), and vericiguat (patient's own med) - recently discontinued To optimize guideline-directed medical therapy (GDMT) - Initiation of an ARNI/ACEI/ARB should be ensured, as this is Class I recommendations for HFrEF - The patient is already on dapagliflozin (SGLT2i) at home, please resume dapagliflozin if clinically appropriatE - Finerenone, a non-steroidal mineralocorticoid receptor antagonist, is primarily indicated for CKD with diabetes and is not standard GDMT for HFrEF; consider switching to a steroidal MRA (spironolactone or eplerenone) unless contraindicated - Vericiguat is reasonable as an add-on for patients with recent HF hospitalization or worsening symptoms despite GDMT, only if the patients blood pressure is permissible SIDNEY MONTERO [facility] RESIDENT Feb 17, 2025 16:58
--- NOTE | 2025-02-17 18:20 | DVHINCON2 ---
Date of service: Feb 17, 2025 History of Present Illness 64 yo M with NICM, ef 10%, admitted for ADHF. pt feels better now. hes compliant with meds Past Medical History reviewed Family History: Alcoholism Cancer Cancer of colon G8 MOTHER Family history: Cardiovascular disease Family history: Diabetes mellitus Family history: Hypertension Prostate cancer UNCLE Renal stone No Family History of: Chronic obstructive lung disease (situation) Family history: Alzheimer's disease Family history: Arthritis Family history: Asthma Family history: Autoimmune disease (situation) Family history: Blood disorder Family history: Congenital anomaly Family history: Coronary thrombosis Family history: Depression (situation) Family history: Diabetes in Family history: Glaucoma Family history: Hypercholesterolemia (situation) Family history: Osteoporosis Family history: Suicide (situation) Family history: Thyroid disorder Ischemic heart disease Malignant melanoma Malignant neoplasm of breast Malignant neoplasm of lung Malignant neoplasm of ovary Seizure disorder (situation) Stroke Allergies: Coded Allergies: NO KNOWN ALLERGIES (Unverified , 08/13/13) Home Meds Active Scripts Apixaban Base (ELIQUIS) 5 Mg Tab, 5 MG PO BID for 30 Days, #60 TAB 3 Refills Prov:MANUEL SOUZA MD 07/05/21 Reported Medications Vericiguat (Verquvo) 10 Mg Tab, 1 TAB PO DAILY for 30 Days, #30 02/16/25 Pregabalin (Pregabalin) 100 Mg Cap, 1 CAP PO TID for 30 Days, #90 02/16/25 Baclofen (Baclofen) 10 Mg Tab, 1 TAB PO BID PRN for MUSCLE SPASM for 30 Days, #60 02/16/25 Amiodarone Hcl (Amiodarone Hcl) 200 Mg Tab, 200 MG PO BID, TAB 02/16/25 Duloxetine Hcl (Cymbalta) 60 Mg Cap, 1 CAP PO DAILY, #90 CAP 3 Refills 02/16/25 Dapagliflozin Propanediol (Farxiga) 10 Mg Tab, 10 MG PO DAILY@BREAKFAST, TAB 02/16/25 Hydrocodone-Acetaminophen (Hydrocodone Bitartrate/AC 10-325 mg) 1 Tab Tab, 1 TAB PO TID PRN for PAIN for 30 Days, #90 05/25/22 Carvedilol (COREG) 3.125 Mg Tab, 3.125 MG PO BID for HTN for 30 Days, #60 05/25/22 Discontinued Reported Medications Vericiguat (Verquvo) 2.5 Mg Tab, 2.5 MG PO DAILY for HF, TAB 05/25/22 Current Medications Current Medications Medications (Trade) Dose Ordered Sig/Jazzy Route PRN Reason Start Time Stop Time Status Last Admin Atorvastatin Calcium (Lipitor) 20 mg HS PO 02/16/25 22:00 02/16/25 21:07 DC Furosemide (Lasix Injection) 40 mg BID IV 02/16/25 22:00 02/16/25 21:07 DC Apixaban (Eliquis) 5 mg BID PO 02/16/25 22:00 02/17/25 10:42 Carvedilol (Coreg Tablet) 3.125 mg BID PO 02/16/25 22:00 02/17/25 10:41 Acetaminophen/ Hydrocodone Bitart ([place] 10/325MG Tab) 1 tab QIDPRN PO 02/16/25 22:00 02/17/25 10:36 DC 02/16/25 22:06 Atorvastatin Calcium (Lipitor) 20 mg HS PO 02/16/25 22:00 02/16/25 22:04 Furosemide (Lasix Injection) 40 mg BID IV 02/16/25 22:00 02/17/25 10:43 Nitroglycerin (Ntrostat Sublingual) 0.4 mg Q5MINP PRN SL FOR CHEST PAIN 02/16/25 21:15 Patient Own Medication 20 mg DAILY PO 02/17/25 10:00 02/17/25 16:30 DC Patient Own Medication 2.5 mg DAILY PO 02/17/25 10:00 02/17/25 16:28 DC Acetaminophen/ Hydrocodone Bitart ([place] 10/325MG Tab) 1 tab Q6HPRN PRN PO PAIN SCALE 4-6 OR TEMP>100.4 02/17/25 10:45 02/17/25 16:08 Pantoprazole Sodium (Protonix) 40 mg DAILY IV 02/18/25 10:00 Review of Systems 10 pt ros otherwise negative Vital Signs Vital Signs Date Time Temp Pulse Resp B/P (MAP) Pulse Ox O2 Delivery O2 Flow Rate FiO2 02/17/25 17:00 98.7 70 18 133/87 (102) 95 98.7 02/17/25 08:27 Room Air* 0 21 Physical Exam nad s1 s2 rrr ctab soft nt/nd n oedema Labs/Diagnostic Data Labs Test 02/17/25 08:52 02/17/25 05:40 02/16/25 12:44 02/16/25 11:59 Range/Units Influenza Type A Antigen Negative Negative Influenza Type B Antigen Negative Negative SARS-CoV-2 Antigen (Rapid) Negative NEGATIVE White Blood Count 6.8 4.4-10.8 10^3/uL Red Blood Count 6.07 H 4.5-5.90 10^6/uL Hemoglobin 18.9 H 13.5-17.5 g/dL Hematocrit 55.8 H 41.0-53.0 % Mean Corpuscular Volume 91.9 80.0-100.0 fL Mean Corpuscular Hemoglobin 31.2 28.0-32.0 pg Mean Corpuscular Hemoglobin Concent 33.9 32.0-36.0 g/dL Red Cell Distribution Width 14.9 H 11.8-14.3 % Platelet Count 309 140-450 10^3/uL Mean Platelet Volume 7.4 6.9-10.8 fL Neutrophils (%) (Auto) 71.0 37.0-80.0 % Lymphocytes (%) (Auto) 15.3 10.0-50.0 % Monocytes (%) (Auto) 10.2 0.0-12.0 % Eosinophils (%) (Auto) 2.9 0.0-7.0 % Basophils (%) (Auto) 0.6 0.0-2.0 % Neutrophils # (Auto) 4.8 1.6-8.6 10 ^3/uL Lymphocytes # (Auto) 1.0 0.4-5.4 10 ^3/uL Monocytes # (Auto) 0.7 0-1.3 10 ^3/uL Eosinophils # (Auto) 0.2 0-0.8 10 ^3/uL Basophils # (Auto) 0 0-0.2 10 ^3/uL Nucleated Red Blood Cells 0.1 % Sodium Level 143 136-145 mmol/L Potassium Level 4.1 3.5-5.1 mmol/L Chloride Level 105 98-107 mmol/L Carbon Dioxide Level 27 20-31 mmol/L Anion Gap 11 5-15 Blood Urea Nitrogen 19 9-23 mg/dL Creatinine 1.57 H 0.700-1.30 mg/dL Glomerular Filtration Rate Calc 50 >90 mL/min BUN/Creatinine Ratio 12.1 10.0-20.0 Serum Glucose 122 H 74-106 mg/dL Hemoglobin A1c 5.8 H <5.7 % A1C Calcium Level 9.6 8.7-10.4 mg/dL Total Bilirubin 0.8 0.2-1.0 mg/dL Aspartate Amino Transferase (AST) 75 H 13-40 U/L Alanine Aminotransferase (ALT) 87 H 7-40 U/L Alkaline Phosphatase 96 46-116 U/L B-Type Natriuretic Peptide 234.49 0-100 pg/mL Total Protein 7.6 5.7-8.2 g/dL Albumin 4.4 3.2-4.8 g/dL Troponin I High Sensitivity 127 *H </=54 ng/L Urine Color Light-yellow Yellow Urine Clarity Clear Clear Urine pH 5.0 5.0-9.0 Urine Specific [place] 1.011 1.001-1.035 Urine Protein Negative Negative Urine Ketones Negative Negative Urine Blood 1+ H Negative /uL Urine Nitrite Negative Negative Urine Bilirubin Negative Negative Urine Urobilinogen Normal Negative mg/dL Urine Leukocyte Esterase Negative Negative /uL Urine RBC <1 0 - 3 /hpf Urine Microscopic WBC < 1 0-3 /HPF Urine Squamous Epithelial Cells None seen <5 /hpf Urine Bacteria None seen None Seen /hpf Urine Glucose 3+ H Normal mg/dL Test 02/16/25 04:18 02/16/25 03:54 Range/Units Magnesium Level 2.5 1.6-2.6 mg/dL Prothrombin Time 11.3 9.3-11.8 sec Prothrombin Time INR 1.07 0.9-1.15 Activated Partial Thromboplast Time 35.4 H 24.5-34.5 SEC Assessment acute on chronic systolic and diastolic HF NYHA class III ckd obesity HTN previous drug abuse LBBB Plan/Recommendation recommend lifevest referral for ICD with EP cont HF meds IV diuretics Plan discussed with: Patient AYLIN GILBERT MD Feb 17, 2025 18:20
[2025-02-17] MEDS: ACETAMINOPHEN 325 MG TAB PO ONE (21:04)
[2025-02-18] VITALS (7 sets, daily range): BP systolic 107–134; BP diastolic 72–96; PULSE 57–79; RESP 16–18; TEMP 97.6–98.4; O2SAT 94–97
[2025-02-18 07:42] LABS: Hematocrit 55.1 % (41.0-53.0); Hemoglobin 18.9 g/dL (13.5-17.5); Mean Corpuscular Hemoglobin 31.5 pg (28.0-32.0); Mean Corpuscular Volume 92.0 fL (80.0-100.0); Nucleated Red Blood Cells % 0.1 %
[2025-02-18 07:46] LABS: Albumin 4.4 g/dL (3.2-4.8); Alkaline Phosphatase 94 U/L (46-116); Anion Gap 11 (5-15); BUN/Creatinine Ratio 15.9 (10.0-20.0); Calcium 9.8 mg/dL (8.7-10.4); Carbon Dioxide 29 mmol/L (20-31); Chloride 102 mmol/L (98-107); Potassium 3.7 mmol/L (3.5-5.1); Sodium 142 mmol/L (136-145); Total Protein 7.6 g/dL (5.7-8.2)
[2025-02-18 07:47] LABS: Alanine Aminotransferase 80 U/L (7-40); Bilirubin, Total 0.9 mg/dL (0.2-1.0); Blood Urea Nitrogen 24 mg/dL (9-23); Glucose 116 mg/dL (74-106)
[2025-02-18] MEDS: PANTOPRAZOLE 40 MG/10 ML VIAL INJ IV SCH (10:33)
[2025-02-18] MEDS ORDERED: FURO1TAB31 PO (15:42)
--- NOTE | 2025-02-18 15:43 | DVHDSRES ---
Discharge Summary Date of Admission Resident Creating Document: JALEESA RASHID RESIDENT Feb 16, 2025 at 09:49 Date of Discharge: Feb 18, 2025 Admitting Diagnosis #Acute on chronic heart failure (HFrEF 10%) exacerbation #Acute Fluid overload #Acute Pulmonary congestion #Severe dilated cardiomyopathy (drug-induced) #MICHAEL on CKD Stage 3a #Acute Mild transaminitis Likely congestive hepatopathy #Paroxysmal Atrial fibrillation #History of right lower extremity amputation / foot surgery #Obesity Wounds: No wounds present on admission Labs/Diagnostic Data: Laboratory Results Test 02/18/25 06:30 02/17/25 08:52 02/17/25 05:40 02/16/25 12:44 White Blood Count 6.9 10^3/uL (4.4-10.8) Red Blood Count 5.99 10^6/uL (4.5-5.90) Hemoglobin 18.9 g/dL (13.5-17.5) Hematocrit 55.1 % (41.0-53.0) Mean Corpuscular Volume 92.0 fL (80.0-100.0) Mean Corpuscular Hemoglobin 31.5 pg (28.0-32.0) Mean Corpuscular Hemoglobin Concent 34.3 g/dL (32.0-36.0) Red Cell Distribution Width 15.1 % (11.8-14.3) Platelet Count 315 10^3/uL (140-450) Mean Platelet Volume 7.5 fL (6.9-10.8) Neutrophils (%) (Auto) 69.5 % (37.0-80.0) Lymphocytes (%) (Auto) 14.9 % (10.0-50.0) Monocytes (%) (Auto) 11.7 % (0.0-12.0) Eosinophils (%) (Auto) 3.4 % (0.0-7.0) Basophils (%) (Auto) 0.5 % (0.0-2.0) Neutrophils # (Auto) 4.8 10 ^3/uL (1.6-8.6) Lymphocytes # (Auto) 1.0 10 ^3/uL (0.4-5.4) Monocytes # (Auto) 0.8 10 ^3/uL (0-1.3) Eosinophils # (Auto) 0.2 10 ^3/uL (0-0.8) Basophils # (Auto) 0 10 ^3/uL (0-0.2) Nucleated Red Blood Cells 0.1 % Sodium Level 142 mmol/L (136-145) Potassium Level 3.7 mmol/L (3.5-5.1) Chloride Level 102 mmol/L (98-107) Carbon Dioxide Level 29 mmol/L (20-31) Anion Gap 11 (5-15) Blood Urea Nitrogen 24 mg/dL (9-23) Creatinine 1.51 mg/dL (0.700-1.30) Glomerular Filtration Rate Calc 52 mL/min (>90) BUN/Creatinine Ratio 15.9 (10.0-20.0) Serum Glucose 116 mg/dL (74-106) Calcium Level 9.8 mg/dL (8.7-10.4) Total Bilirubin 0.9 mg/dL (0.2-1.0) Aspartate Amino Transferase (AST) 59 U/L (13-40) Alanine Aminotransferase (ALT) 80 U/L (7-40) Alkaline Phosphatase 94 U/L (46-116) Total Protein 7.6 g/dL (5.7-8.2) Albumin 4.4 g/dL (3.2-4.8) Influenza Type A Antigen Negative (Negative) Influenza Type B Antigen Negative (Negative) SARS-CoV-2 Antigen (Rapid) Negative (NEGATIVE) Hemoglobin A1c 5.8 % A1C (<5.7) B-Type Natriuretic Peptide 234.49 pg/mL (0-100) Troponin I High Sensitivity 127 ng/L (</=54) Test 02/16/25 11:59 02/16/25 04:18 02/16/25 03:54 Urine Color Light-yellow (Yellow) Urine Clarity Clear (Clear) Urine pH 5.0 (5.0-9.0) Urine Specific [place] 1.011 (1.001-1.035) Urine Protein Negative (Negative) Urine Ketones Negative (Negative) Urine Blood 1+ /uL (Negative) Urine Nitrite Negative (Negative) Urine Bilirubin Negative (Negative) Urine Urobilinogen Normal mg/dL (Negative) Urine Leukocyte Esterase Negative /uL (Negative) Urine RBC <1 /hpf (0 - 3) Urine Microscopic WBC < 1 /HPF (0-3) Urine Squamous Epithelial Cells None seen /hpf (<5) Urine Bacteria None seen /hpf (None Seen) Urine Glucose 3+ mg/dL (Normal) Magnesium Level 2.5 mg/dL (1.6-2.6) Prothrombin Time 11.3 sec (9.3-11.8) Prothrombin Time INR 1.07 (0.9-1.15) Activated Partial Thromboplast Time 35.4 SEC (24.5-34.5) Other Laboratory Tests 02/18/25 06:30 Brief Hx & Hospital Course: PHI: Fabian Zarate is a 64-year-old male, with past medical history of atrial fibrillation on Eliquis (followed by [facility] Dr. Adams), heart failure with reduced ejection fraction, drug-induced dilated cardiomyopathy, hypertension, peripheral neuropathy, and right lower extremity amputation/right foot surgery, presents with acute shortness of breath and generalized weakness. The patient reports that last night, while walking up his property, he developed difficulty catching his breath and felt that his legs became weak, to the point where he was briefly unable to stand. He later awoke around 2:00 AM with worsening shortness of breath, prompting him to come to the ED for evaluation. The patient states that he is prescribed Lasix PRN but was instructed previously to only take it as needed; he reports that the last time he took Lasix was approximately two months ago. He denies chest pain, headache, dizziness, or syncope. He does note that after receiving IV Lasix in the ED, his shortness of breath significantly improved. In the ED, labs showed hemoglobin 18.4 / hematocrit 53.3, chloride 108, creatinine 1.31, glucose 127, AST 72, ALT 78, troponin x2 negative, and BNP 431.4. Chest x-ray demonstrated cardiomegaly with right basilar atelectasis. Review of records shows the last echocardiogram from June 2021, at which time the EF was approximately 10%. The patient is currently awaiting defibrillator (ICD) placement per pt statement. Given symptoms consistent with acute decompensated heart failure, the patient will be admitted for further cardiac evaluation and management. Past Medical History:See HPI above Past Surgical History:See HPI above Family History: Reviewed, non-contributory to the management of this case. Past Social History: The patient lives at home, denies smoking, alcohol or illicit drugs abuse. Hospital course: During his admission the patient was examined and evaluated at bedside. The patients vital signs, labs and chart was reviewed everyday. The patient reports improvement on dyspnea. No aFib episode were reported on telemetry. The patient troponins values were trending down. Repeated BNP is 234.49. New ECHO showed EF 10%. Cardiology was consulted Dr. Rey (patient's cardiologyst) wascontacted to report the patient status. The patient received IV furosemide 40mg bid with improvement on symptoms. On 02/18/25, Dr. Barnes evaluated the patient and advised life vest and follow up for ICD as outpatient. Due to significant clinical improvement, the patient is being discharge today. The patient will f/u with Dr. Rey for ICD placement. F/U with PCP within 1 week . F/U D/C clinic within 72hrs. All patient's question were answered satisfactorily, warning signs and when to return to the ED recommendations were given, patient agreed to understanding. ROS: Constitutional: No: Fever, Chills, Sweats, Weakness, Malaise, Other Eyes: No: Pain, Vision change, Conjunctivae inflammation, Eyelid inflammation, Other, Redness ENT: No: Ear pain, Ear discharge, Nose pain, Nose discharge, Nose congestion, Mouth pain, Mouth swelling, Throat pain, Throat swelling, Other Respiratory: No SOB; No: Cough, Dry, Wheezing, Hemoptysis, Pleuritic Pain, Sputum, Wheezing, Other Cardiovascular: No: Chest Pain, Palpitations, Orthopnea, Paroxysmal Noc. Dyspnea, Edema, Lt Headedness, Other Gastrointestinal: No: Nausea, Vomiting, Abdominal Pain, Diarrhea, Constipation, Melena, Hematochezia, Other Genitourinary: No Dysuria, No Frequency, No Incontinence, No Hematuria, No Retention, No Other Musculoskeletal: No: other, neck pain, shoulder pain, arm pain, back pain, hand pain, leg pain, foot pain Skin: No: Rash, Lesions, Jaundice, Bruising, Other Neurological: No: Weakness, Numbness, Incoordination, Change in speech, Confusion, Seizures, Other Allergies: NO KNOWN ALLERGIES (Unverified , 08/13/13) Physcal exam: General Appearance: Alert, Oriented X3, Cooperative, No in acute distress, on room air. HEENT: Atraumatic, PERRLA, EOMI, Mucous membr. moist/pink Respiratory: normal lung expansion, no crackles on both lung womack. Cardiovascular: Regular rate, Normal S1, Normal S2, No murmurs Abdominal: Normal bowel sounds, Soft, No tenderness, No hepatospenomegaly, No masses Extremities: No clubbing, No cyanosis, No edema, Normal pulses, No tenderness/swelling Skin: No rashes, No breakdown, No significant lesion Neuro: Normal gait, Normal speech, Strength at 5/5 X4 ext, Normal tone, Sensation intact, Cranial nerves 3-12 NL Psych/Mental Status: Mental status NL, Mood NL Plan: Discharge home Cardiac diet Lasix 40mg po daily Eliquis 5mg po bid Continue with home medications F/U with Dr. Rey for ICD placement. F/U with PCP within 1 week F/U D/C clinic within 72hrs Consults/Reason for consult Cardiology: ECHo EF 10%, Afib Operations or Procedures PROCEDURE(s): CXRP - CHEST PORTABLE REASON: SOB ORDER NUMBER(s): [id number], ACCESSION NUMBER(s): [id number] CHEST RADIOGRAPH INDICATION: SOB TECHNIQUE: Single frontal view of the chest was obtained COMPARISON: CHEST PORTABLE on DOS: 07/03/21, CXRP on DOS: 07/03/21 FINDINGS: Lines and Tubes: None Lungs: No focal consolidation. Diffuse reticular opacities may reflect atypical pneumonia versus mild pulmonary edema. Right base subsegmental atelectasis. Pleura: No effusion. No pneumothorax. Cardiomediastinal contours: Mild cardiomegaly. Bones: No acute osseous abnormality. IMPRESSION: 1. Diffuse reticular opacities may reflect atypical pneumonia versus mild pulmonary edema. 2. Right base subsegmental atelectasis. 3. Mild cardiomegaly. ON: eval cardiac function and ef ORDER NUMBER(s): [id number], ACCESSION NUMBER(s): [id number] APPROVED REPORT EXAM: Two-dimensional and M-mode echocardiogram with Doppler and color Doppler. Blood Pressure: 130/89 mmHg INDICATION Eval Cardiac Function and EF RISK FACTORS Height: 5' 9", Weight: 178 DIMENSIONS LVDd 7.7 (3.8-5.7cm) LA (2D) 4.2 (1.9-4.0cm) Aortic Root 3.8 (2.0- 3.7cm) LVDs 7.4 (2.5-4.0cm) LA (MM) (1.9-4.0cm) Aortic Cusp Exc 2.0 (1.5- 2.0cm) EF (%) 10.0 (55-70%) Rt. Atrium 3.9 (1.9-4.0cm) Asc. Aorta cm IVSd 1.0 (0.7-1.1cm) RV (D) (1.8-2.4cm) PWd 1.1 (0.7-1.1cm) Mitral Valve Mitral Mitral Stenosis E wave 0.50m/s MV Mean GR. mmHg A wave 1.10m/s MV Peak GR. mmHg E/A ratio 0.5 2D MVA cm2 Aortic Valve Aortic Valve Aortic Stenosis V1 0.50m/s AO Mean GR. 3mmHg V2 1.20m/s AO Peak GR. 6mmHg LVOT Diameter 2.6 (1.8-2.4cm) Doppler GORGE 2.21cm2 Conclusion MAJOR LV SYSTOLIC DYSFUNCTION LV EF IS ONLY 10% MODERATE DEGREE MR NORMAL VALVES NO EFFUSION Condition at Discharge: Stable Final Diagnosis/Problems List #Acute on chronic heart failure (HFrEF 10%) exacerbation , systolic dysfunction likely #Acute Fluid overload #Acute Pulmonary congestion #Severe dilated cardiomyopathy (drug-induced) #MICHAEL on CKD Stage 3a #Acute Mild transaminitis Likely congestive hepatopathy #Paroxysmal Atrial fibrillation with secondary hypercoagulable state #History of right lower extremity amputation / foot surgery #Obesity Discharge Disposition: Home SNF Discharge Will this Physician continue t: No Discharge Instruct/Medications Diet: Cardiac 2g Na,low cholest Activity: No Restrictions, As Tolerated Follow Up/Referral: F/U with Dr. Rey for ICD placement. F/U with PCP within 1 week F/U D/C clinic within 72hrs Medications: Continue with home meds Lasix 40mg po daily Scheduled Amiodarone Hcl (Amiodarone Hcl), 200 MG PO BID, (Reported) Apixaban Base (Eliquis), 5 MG PO BID Carvedilol (Coreg), 3.125 MG PO BID, (Reported) Dapagliflozin Propanediol (Farxiga), 10 MG PO DAILY@BREAKFAST, (Reported) Duloxetine Hcl (Cymbalta), 1 CAP PO DAILY, (Reported) Furosemide (Lasix), 40 MG PO DAILY Pregabalin (Pregabalin), 1 CAP PO TID, (Reported) Vericiguat (Verquvo), 1 TAB PO DAILY, (Reported) Scheduled PRN Baclofen (Baclofen), 1 TAB PO BID PRN for MUSCLE SPASM, (Reported) Discontinued Medications Hydrocodone-Acetaminophen (Hydrocodone Bitartrate/AC 10-325 mg), 1 TAB PO TID PRN for PAIN, (Reported) Vericiguat (Verquvo), 2.5 MG PO DAILY, (Reported) Discharge Statement: "Patient was advised to return to the ER or call 911 if any headaches, dizziness, shortness of breath, chest pain, abdominal pain, bleeding, fevers, or worsening of medical condition. Patient was counseled about treatment plan, medications, possible side effects, patientverbalized understanding. All questions were answered to the best of my ability. This discharge took greater then 30 minutes in planning, reviewing documentation, counseling the patient, and discussing with other team members." ASSESSMENT ASSESSMENT Assessment #Acute on chronic heart failure (HFrEF 10%) exacerbation #Acute Fluid overload #Acute Pulmonary congestion #Severe dilated cardiomyopathy (drug-induced) #MICHAEL on CKD Stage 3a #Acute Mild transaminitis Likely congestive hepatopathy #Paroxysmal Atrial fibrillation #History of right lower extremity amputation / foot surgery #Obesity Diet Cardiac diet Disposition: Home PCP: Dr. Chavez Patient's status and discharge plan discussed with the patient's and friend >30min. Patient agrees with the discharge plan Case discussed with Dr. Wasserman Visit Coding STANDARD RES Billing Provider: ARNEL OCHOA MD Date of Service if different f: Feb 18, 2025 Common Visit Codes: 18386-BTW/OBS DISCH DAY >30min JALEESA RASHID RESIDENT Feb 18, 2025 15:43 PRASANTH GARG RESIDENT Feb 19, 2025 07:19 ARNEL OCHOA MD Feb 23, 2025 20:28
== END 2025-02-18 17:15 | disposition home or self-care (01) | DRG 194 ==
LOC: ER 03:22 → EDBD 03:22 → OVERFLOW 09:49 → TELE-WESTW 17:50
PROVIDERS: ADMIT Student in an Organized Health Care Education/Training Program; ATTEND Student in an Organized Health Care Education/Training Program
DX: I13.0 Hypertensive heart and chronic kidney disease with heart failure and stage 1 through stage 4 chronic kidney disease, or unspecified chronic kidney disease (principal); K76.1 Chronic passive congestion of liver; I24.9 Acute ischemic heart disease, unspecified; I21.A1 Myocardial infarction type 2; I42.0 Dilated cardiomyopathy; I48.0 Paroxysmal atrial fibrillation; G62.9 Polyneuropathy, unspecified; N17.9 Acute kidney failure, unspecified; Z79.01 Long term (current) use of anticoagulants; E66.9 Obesity, unspecified; N18.31 Chronic kidney disease, stage 3a; I50.43 Acute on chronic combined systolic (congestive) and diastolic (congestive) heart failure; Z20.822 Contact with and (suspected) exposure to COVID-19; F17.210 Nicotine dependence, cigarettes, uncomplicated; R74.01 Elevation of levels of liver transaminase levels; I44.7 Left bundle-branch block, unspecified; Z89.611 Acquired absence of right leg above knee; I25.2 Old myocardial infarction; Z95.810 Presence of automatic (implantable) cardiac defibrillator; Z80.0 Family history of malignant neoplasm of digestive organs; Z82.49 Family history of ischemic heart disease and other diseases of the circulatory system; Z83.3 Family history of diabetes mellitus; Z80.3 Family history of malignant neoplasm of breast; Z80.42 Family history of malignant neoplasm of prostate; Z80.1 Family history of malignant neoplasm of trachea, bronchus and lung; Z82.0 Family history of epilepsy and other diseases of the nervous system; Z82.3 Family history of stroke; Z80.8 Family history of malignant neoplasm of other organs or systems; Z82.62 Family history of osteoporosis; Z82.5 Family history of asthma and other chronic lower respiratory diseases; Z81.8 Family history of other mental and behavioral disorders; Z68.30 Body mass index [BMI] 30.0-30.9, adult; D68.69 Other thrombophilia
CPT/HCPCS: 36415; 71045; 80053; 81001; 83036; 83735; 83880; 84484; 85025; 85610; 85730; 87426; 87804; 93005; 93306; 96374; 99291; G0378; J2470